=== PATIENT | female | born 1975 | race Hispanic/Latino ===

== ENCOUNTER 2024-06-06 21:18 | Inpatient (IN) | payer MEDICAID, SELFPAY ==
[2024-06-06] MEDS ORDERED: traMADol HCl 50 MG TAB PO PRN ×2 (22:00)
[2024-06-06] MEDS ORDERED: Acetaminophen 650 MG Suppository PR PRN (22:00)
[2024-06-06] MEDS ORDERED: Sodium Chloride 0.9% 1,000 ML IV PRN ×4 (22:00)
[2024-06-06] MEDS ORDERED: NS 0.9% w/ 20 MEQ KCL 1,000 ML IV PRN (22:00)
[2024-06-06] MEDS ORDERED: Lorazepam 2 MG/ML VIAL SLOW IVP PRN (22:00)
[2024-06-06] MEDS ORDERED: Electrolyte Replacement Protocol 1 EACH IVPB PRN (22:00)
[2024-06-06] MEDS ORDERED: Dextrose 5 %-0.45 % NaCl 1,000 ML IV PRN (22:00)
[2024-06-06] MEDS ORDERED: Dextrose 50% Abboject 50 ML SYRINGE SLOW IVP PRN (22:00)
[2024-06-06] MEDS ORDERED: Acetaminophen 325 MG TAB PO PRN (22:00)
[2024-06-06] MEDS ORDERED: niCARdipine 25 MG in Sodium Chloride 0.9% 250 ML 250 ML IVPB SCH (22:15)
[2024-06-06] MEDS: INSULIN REGULAR IN 0.9 % NACL 100 ML IVPB SCH (22:23)
[2024-06-06] MEDS: NS 0.9% w/ 20 MEQ KCL 1,000 ML IV PRN (22:24)
[2024-06-06 23:06] LABS: Anion Gap 22 mmol/L (10-20); BUN (Urea Nitrogen) 4 mg/dL (7.0-18.7); Calc. Creatinine Clearance 137 mL/min (70-130); Calcium 8.6 mg/dL (7.8-10.44); Carbon Dioxide 17 mmol/L (22-29); Chloride 98 mmol/L (98-107); Estimated GFR 109; Glucose 306 mg/dL (70-105); Potassium 4.2 mmol/L (3.5-5.1); Sodium 133 mmol/L (136-145)
[2024-06-06] MEDS: Atorvastatin Calcium 40 MG TAB PO SCH (23:21)
[2024-06-07] MEDS: D5 1/2 NS w/20 mEq KCL 1,000 ML IV PRN (00:56)
[2024-06-07 02:06] LABS: #Basophils 0.06 10x3/uL (0.0-0.2); #Eosinophils Less than 0.03 10x3/uL (0.0-0.7); %Basophils 0.7 % (0.0-1.0); %Eosinophils 0.2 % (0.0-10.0); %Lymphocytes 23.9 % (21.0-51.0); %Monocytes 11.2 % (0.0-10.0); %Neutrophils 63.8 % (42.0-75.0); Hematocrit 31.4 % (36.0-47.0); Mean Corpuscular HGB CONC 28.7 g/dL (32.0-36.0); Mean Corpuscular Hemoglobin 20.6 pg (27.0-31.0); Mean Corpuscular Volume 71.9 fL (78.0-98.0); Mean Platelet Volume 10.2 fL (7.4-10.4); Platelet Count 222 10x3/uL (130-400); RBC Distribution Width 19.6 % (11.5-14.5); Red Blood Cell (RBC) Count 4.37 mill/uL (4.20-5.40)
[2024-06-07 02:33] LABS: A1c 335.648 g/dL; Hb (HGBA1c) 3084.7833 umol/L; Hemoglobin A1c 12.1 % (4.0-6.0)
[2024-06-07 02:35] LABS: ALT (SGPT) 44 U/L (8-55); AST (SGOT) 40 U/L (5-34); Albumin 3.3 g/dL (3.5-5.0); Alkaline Phosphatase 114 U/L (40-110); Anion Gap 12 mmol/L (10-20); BUN (Urea Nitrogen) Less than 4 mg/dL (7.0-18.7); Bilirubin, Total 0.6 mg/dL (0.2-1.2); Calc. Creatinine Clearance 142 mL/min (70-130); Calcium 8.3 mg/dL (7.8-10.44); Carbon Dioxide 21 mmol/L (22-29); Cardiac Risk 3.1 (Less than 4.5); Chloride 103 mmol/L (98-107); Cholesterol 155 mg/dl (< 200 Desired); Estimated GFR 110; Globulin 3.1 g/dL (2.4-3.5); Glucose 159 mg/dL (70-105); HDL Cholesterol 50 mg/dL (>60 Neg Risk); LDL Cholesterol, Calculated 85 mg/dL; Magnesium 1.5 mg/dL (1.6-2.6); Potassium 3.5 mmol/L (3.5-5.1); Protein, Total 6.4 g/dL (6.0-8.3); Sodium 132 mmol/L (136-145); Triglycerides 101 mg/dL (Less than 150)
[2024-06-07 03:41] LABS: Amphetamine Not Detected (NotDetected); Barbiturates Screen Not Detected (NotDetected); Benzodiazepine Screen Not Detected (NotDetected); Cocaine Metabolite Screen Not Detected (NotDetected); Methadone Not Detected (NotDetected); Methamphetamine Not Detected (NotDetected); Opiate Screen Detected (NotDetected); Oxycodone Screen Not Detected (NotDetected); Phencyclidine (PCP) Not Detected (NotDetected); THC/Cannabinoid Screen Not Detected (NotDetected); Tricyclic Screen Not Detected (NotDetected)
[2024-06-07] MEDS: Magnesium 2 GM/50 ML(in water) 2 GM in Premix 1 BAG IVPB SCH (04:48)
[2024-06-07] MEDS: Potassium Chloride 20 MEQ in Premix 1 BAG IVPB SCH (04:55)
[2024-06-07 07:00] LABS: Anion Gap 13 mmol/L (10-20); BUN (Urea Nitrogen) Less than 4 mg/dL (7.0-18.7); Calc. Creatinine Clearance 147 mL/min (70-130); Calcium 8.5 mg/dL (7.8-10.44); Carbon Dioxide 22 mmol/L (22-29); Chloride 102 mmol/L (98-107); Estimated GFR 110; Glucose 140 mg/dL (70-105); Potassium 3.3 mmol/L (3.5-5.1); Sodium 134 mmol/L (136-145)
[2024-06-07 07:29] VITALS: BMI 33.2
[2024-06-07] MEDS ORDERED: HumaLOG 300 UNITS/3 ML VIAL SC PRN ×2 (08:07)
[2024-06-07] MEDS: Insulin Glargine 30 UNITS/0.3 ML VIAL SC SCH (09:04)
[2024-06-07] MEDS: levETIRAcetam 500 MG (5 mL) VIAL SLOW IVP SCH (09:04)
[2024-06-07] MEDS: Losartan 25 MG TAB PO SCH (09:05)
[2024-06-07] MEDS: Potassium Chloride 20 MEQ TAB PO SCH (09:05)
[2024-06-07] MEDS: Famotidine 20 MG TAB PO SCH (09:05)
[2024-06-07] MEDS: Enoxaparin 40 MG (0.4 mL) SYRINGE SC SCH (09:05)
[2024-06-07] MEDS ORDERED: Insulin Lispro 100 UNIT/ML 10 ML VIAL SC PRN (13:00)
[2024-06-07] MEDS: Insulin Lispro 100 UNIT/ML 10 ML VIAL SC PRN (13:02)
[2024-06-07] MEDS: Atorvastatin Calcium 40 MG TAB PO SCH (20:04)
[2024-06-08] MEDS: Losartan 25 MG TAB PO SCH (08:56)
[2024-06-08] MEDS: Insulin Glargine 30 UNITS/0.3 ML VIAL SC SCH (08:56)
[2024-06-08 10:17] LABS: Anion Gap 15 mmol/L (10-20); BUN (Urea Nitrogen) Less than 4 mg/dL (7.0-18.7); Calc. Creatinine Clearance 128 mL/min (70-130); Calcium 8.9 mg/dL (7.8-10.44); Carbon Dioxide 21 mmol/L (22-29); Chloride 97 mmol/L (98-107); Estimated GFR 106; Glucose 320 mg/dL (70-105); Potassium 3.9 mmol/L (3.5-5.1); Sodium 129 mmol/L (136-145)
[2024-06-08 10:37] LABS: #Basophils 0.07 10x3/uL (0.0-0.2); %Basophils 1.8 % (0.0-1.0); %Eosinophils 1.8 % (0.0-10.0); %Lymphocytes 28.4 % (21.0-51.0); %Neutrophils 55.7 % (42.0-75.0); Hematocrit 34.9 % (36.0-47.0); Hemoglobin 9.9 g/dL (12.0-16.0); Mean Corpuscular HGB CONC 28.4 g/dL (32.0-36.0); Mean Corpuscular Hemoglobin 20.8 pg (27.0-31.0); Mean Corpuscular Volume 73.3 fL (78.0-98.0); Mean Platelet Volume 10.6 fL (7.4-10.4); Platelet Count 235 10x3/uL (130-400); RBC Distribution Width 19.8 % (11.5-14.5); Red Blood Cell (RBC) Count 4.76 mill/uL (4.20-5.40)
[2024-06-08 11:36] LABS: Anisocytosis SLIGHT = 6-15 cells HPF (0-5); Hypochromia SLIGHT = 6-15 cells HPF (0-5); Microcytosis SLIGHT = 6-15 cells HPF (0-5); Ovalocytes SLIGHT = 2-5 cells HPF (0-1); Platelet Adequacy Comment Platelets Normal; Polychromasia SLIGHT = 2-3 cells HPF (0-2); Target Cells SLIGHT = 2-5 cells HPF (0-1)
[2024-06-09 04:29] LABS: #Basophils 0.05 10x3/uL (0.0-0.2); %Basophils 1.1 % (0.0-1.0); %Eosinophils 2.1 % (0.0-10.0); %Lymphocytes 32.8 % (21.0-51.0); %Monocytes 12.1 % (0.0-10.0); %Neutrophils 51.7 % (42.0-75.0); Hematocrit 36.1 % (36.0-47.0); Hemoglobin 10.3 g/dL (12.0-16.0); Mean Corpuscular HGB CONC 28.5 g/dL (32.0-36.0); Mean Corpuscular Hemoglobin 20.9 pg (27.0-31.0); Mean Corpuscular Volume 73.1 fL (78.0-98.0); Mean Platelet Volume 10.6 fL (7.4-10.4); Platelet Count 236 10x3/uL (130-400); RBC Distribution Width 19.7 % (11.5-14.5); Red Blood Cell (RBC) Count 4.94 mill/uL (4.20-5.40)
[2024-06-09 04:46] LABS: Anion Gap 15 mmol/L (10-20); BUN (Urea Nitrogen) Less than 4 mg/dL (7.0-18.7); Calc. Creatinine Clearance 130 mL/min (70-130); Calcium 8.8 mg/dL (7.8-10.44); Carbon Dioxide 22 mmol/L (22-29); Chloride 99 mmol/L (98-107); Estimated GFR 107; Glucose 258 mg/dL (70-105); Potassium 4.2 mmol/L (3.5-5.1); Sodium 132 mmol/L (136-145)
[2024-06-09 08:13] VITALS: TEMP 98.9
[2024-06-09] MEDS: FLU (Fluarix Triv) TS24-25(6MOS UP)/PF 45 MCG/0.5 ML Syringe IM ONE (08:29)
[2024-06-09] MEDS ORDERED: Insulin Glargine 30 UNITS/0.3 ML VIAL SC SCH (10:05)
[2024-06-09 10:30] VITALS: BP 150/85
== END 2024-06-09 15:00 | disposition home or self-care (01) | DRG 82 ==
LOC: IMCU/EMU 21:18
PROVIDERS: ADMIT Family Medicine; ATTEND Hospitalist
PROC: 4A10X4Z Monitoring of Central Nervous Electrical Activity, External Approach (ICD-10-PCS; principal; 2024-06-09)
DX: S06.5XAA Traumatic subdural hemorrhage with loss of consciousness status unknown, initial encounter (principal); E11.10 Type 2 diabetes mellitus with ketoacidosis without coma; I16.1 Hypertensive emergency; S06.6XAA Traumatic subarachnoid hemorrhage with loss of consciousness status unknown, initial encounter; I10 Essential (primary) hypertension; R56.9 Unspecified convulsions; R51.9 Headache, unspecified; Z79.899 Other long term (current) drug therapy
CPT/HCPCS: 36415; 36416; 70450; 70553; 76376; 80048; 80053; 80061; 80306; 82010; 82140; 82805; 83036; 83605; 83735; 83930; 84145; 84146; 84443; 84484; 85025; 87040; 93005; 95813; J1650; J1815; J1953; J2272; J3475; J3480

== ENCOUNTER 2024-07-16 15:09 | Outpatient (CLI) | payer SELFPAY | END 2024-07-16 15:10 | disposition home or self-care (01) | LOC: ULT 15:09 | PROVIDERS: ATTEND Family Medicine | DX: T83.39XA Other mechanical complication of intrauterine contraceptive device, initial encounter (principal) | CPT/HCPCS: 76856 ==